=== PATIENT | male | born 1990 | race American Indian/Alaskan Native ===

== ENCOUNTER 2016-11-15 13:16 | Emergency (ER) | payer SELFPAY ==
[2016-11-15] MEDS ORDERED: XYLOCAINE 1% MPF 5 mL INFILTRATI ONE ×2 (13:21→17:42)
[2016-11-15] MEDS ORDERED: ZITHROMAX PO ONE ×2 (13:21→17:42)
[2016-11-15] MEDS ORDERED: ROCEPHIN IM ONE (13:21)
--- NOTE | 2016-11-15 13:21 | Emergency Department Report ---
Chief Complaint: Urogenital-Male Stated Complaint: ABD PAIN NAUSEA Time Seen by Provider: 11/15/16 13:17 - HPI History of Present Illness: PT c/o penile discharge x 1 week. - ROS Review of Systems: - fever - chill - Exam Physical Exam: PT looks well, non toxic. no cva tenderness gcs 15 MSE screening note: Focused history and physical exam performed. Due to findings the following was ordered: labs, meds ED Disposition for MSE Condition: Stable
--- NOTE | 2016-11-15 16:29 | Emergency Department Report ---
ED Male HPI - General Chief complaint: Urogenital-Male Stated complaint: ABD PAIN NAUSEA Time Seen by Provider: 11/15/16 13:17 Source: patient Mode of arrival: Ambulatory Limitations: No Limitations - History of Present Illness Initial comments: Patient here reports that he has discharge from his penis that's been going on for over a week. He said that he was having sexual activity and was wearing a condom and the condom broke. He said he doesn't know F his partner have similar symptoms because he knows she is just on the light. Denies any fever or chills. Denies any urinary burning frequency or urgency. Denies any nausea or vomiting. Reports abdominal cramping on and off 1 week. Denies any blood in his urine. Denies any back pain. Patient said his abdominal pain is from him doing sit ups. Pain is 3 out of 10 and cramping and he did not take any medication for pain. MD Complaint: penile discharge Onset/Timin -: week(s) Location: abdomen Radiation: none Severity scale (0 -10): 3 Quality: other (cramping) Consistency: intermittent Improves with: none Worsens with: none new sexual partner discharge. denies: swelling, mass, rash, urinary retention, blood in urine, dysuria, fever, nausea/vomiting, incontinence - Related Data Sexually active: Yes Previous Rx's Medication Instructions Recorded Last Taken Type Ciprofloxacin HCl [Ciprofloxacin 500 mg PO Q12H #20 tab 11/15/16 Unknown Rx TAB] Allergies Allergy/AdvReac Type Severity Reaction Status Date / Time No Known Allergies Allergy Unverified 11/15/16 16:20 ED Review of Systems ROS: Stated complaint: ABD PAIN NAUSEA Other details as noted in HPI Comment: All other systems reviewed and negative Constitutional: no symptoms reported ENT: denies: throat pain Respiratory: no symptoms reported Cardiovascular: denies: chest pain, palpitations, edema, syncope Gastrointestinal: denies: abdominal pain, nausea, vomiting, diarrhea, constipation, hematemesis, melena, hematochezia Genitourinary: discharge. denies: urgency, dysuria, frequency, hematuria, testicular pain, testicular mass Musculoskeletal: denies: back pain, arthralgia, myalgia Skin: denies: rash Neurological: denies: headache ED Past Medical Hx - Past Medical History Previous Medical History?: No - Surgical History Past Surgical History?: No - Family History Family history: no significant - Social History Smoking Status: Former Smoker Substance Use Type: None Other Social History: Single - Medications Home Medications: Home Medications Medication Instructions Recorded Confirmed Last Taken Type Ciprofloxacin HCl [Ciprofloxacin 500 mg PO Q12H #20 tab 11/15/16 Unknown Rx TAB] ED Physical Exam - General Limitations: No Limitations General appearance: alert, in no apparent distress - Head Head exam: Present: atraumatic, normocephalic, normal inspection - Eye Eye exam: Present: normal appearance, PERRL, EOMI Pupils: Present: normal accommodation - ENT ENT exam: Present: normal exam, normal orophraynx, mucous membranes moist - Neck Neck exam: Present: normal inspection, full ROM. Absent: tenderness, lymphadenopathy - Respiratory Respiratory exam: Present: normal lung sounds bilaterally. Absent: respiratory distress, chest wall tenderness - Cardiovascular Cardiovascular Exam: Present: regular rate, normal rhythm, normal heart sounds. Absent: systolic murmur, diastolic murmur - GI/Abdominal GI/Abdominal exam: Present: soft, normal bowel sounds. Absent: distended, tenderness, guarding, rebound, rigid, organomegaly, mass, bruit, pulsatile mass , hernia - exam: Present: urethral discharge. Absent: testicular tenderness, scrotal swelling, vertical testicular lie, circumcision External exam: Present: normal external exam. Absent: erythema, swelling, lesions, lacerations, ecchymosis - Extremities Exam Extremities exam: Present: normal inspection, full ROM, normal capillary refill. Absent: tenderness, pedal edema, joint swelling, calf tenderness - Back Exam Back exam: Present: normal inspection, full ROM. Absent: tenderness, CVA tenderness (R), CVA tenderness (L), muscle spasm, paraspinal tenderness, vertebral tenderness, rash noted - Neurological Exam Neurological exam: Present: alert, oriented X3, normal gait, reflexes normal. Absent: motor sensory deficit - Psychiatric Psychiatric exam: Present: normal affect, normal mood - Skin Skin exam: Present: warm, dry, intact, normal color. Absent: rash ED Course Vital Signs 11/15/16 11/15/16 11/15/16 13:18 16:27 16:54 Temperature 98.9 F Pulse Rate 99 H 86 Respiratory 16 16 Rate Blood Pressure 142/59 Blood Pressure 113/62 [Right] O2 Sat by Pulse 97 100 Oximetry - Reevaluation(s) Reevaluation #1: 11/15/16 17:45 Patient given rocephin 1 gram to cover Gonorrhea and UTI, Flagyl 2 gram for Trichomonas and azithromycin 1 g by mouth for chlamydia. He had no adverse reaction in emergency room. ED Medical Decision Making - Lab Data Lab Results 11/15/16 Range/Units 16:59 Urine Color Yellow (Yellow) Urine Turbidity Cloudy (Clear) Urine pH 6.0 (5.0-7.0) Ur Specific [place] 1.025 (1.003-1.030) Urine Protein 30 mg/dl (Negative) mg/dL Urine Glucose (UA) Neg (Negative) mg/dL Urine Ketones Tr (Negative) mg/dL Urine Blood Neg (Negative) Urine Nitrite Neg (Negative) Urine Bilirubin Neg (Negative) Urine Urobilinogen 4.0 (<2.0) mg/dL Ur Leukocyte Esterase Mod (Negative) Urine WBC (Auto) > 182.0 H (0.0-6.0) /HPF Urine RBC (Auto) 23.0 (0.0-6.0) /HPF U Epithel Cells (Auto) < 1.0 (0-13.0) /HPF Urine Mucus 1+ /HPF Urine culture pending Gonorrhea and chlamydia pending - Medical Decision Making ED course: Sent here complaining and of penile drainage and reports that he was having sexual encounter with a new partner and his condom broke. He describes the discharge as white and creamy. He said this started a week ago. She denies any penile rash, urinary burning frequency or urgency. He denies any blood in his urine. Denies any back pain. Patient complaining of lower abdominal pain but related it to him doing sit ups. He does hold his urine quite frequently. Urinalysis reveal patient with bladder infection, trace ketone and patient is able to drink oral liquids without any difficulties in emergency room. He also has protein at 30 in his urine suspect from infection. Patient treated for concerned for STD with Rocephin to cover gonorrhea. He was given 1 g IM which will cover gonorrhea and treat UTI, he was given azithromycin 1 g by mouth to treat Chlamydia and Flagyl 2 g by mouth to treat Trichomonas. I discussed with patient that is urine results show that he had a bladder infection, mild dehydration and some protein in his urine and he will need to follow-up at [facility] for repeat urinalysis in 10 days. I Also discussed with him that I sent a urine culture off and will call him if need to change his antibiotic and also that urine gonorrhea and chlamydia was sent and he will be called if necessary. Patient vital signs are stable and is afebrile. I instructed patient that he needs to practice safe sex and increase his fluid intake. I also instructed him that he needs to tell his sexual partner that he was treated for STD in emergency room and that partner will need to go get checked for STD. This with him that they can go to [facility]. Patient was nondistended discharge diagnosis and treatment plan and discharged home with prescription for ciprofloxacin. Patient with acute cystitis without hematuria, no concern for STD without diagnosis, penile discharge and abdominal pain. Critical care attestation.: If time is entered above; I have spent that time in minutes in the direct care of this critically ill patient, excluding procedure time. ED Disposition Clinical Impression: Concern about STD in male without diagnosis, Penile discharge, Acute cystitis without hematuria, Ketonuria, Mild dehydration Abdominal pain Qualifiers: Abdominal location: lower abdomen, unspecified Qualified Code(s): R10.30 - Lower abdominal pain, unspecified Protein in urine Qualifiers: Proteinuria type: unspecified Qualified Code(s): R80.9 - Proteinuria, unspecified Disposition: DC-01 TO HOME OR SELFCARE Is pt being admited?: No Does the pt Need Aspirin: No Condition: Stable Instructions: Dehydration (ED), Urinary Tract Infection in Men (ED), Sexually Transmitted Diseases (ED), Safe Sex (ED), Abdominal Pain (ED) Additional Instructions: Please follow up with [facility] since he do not have a primary care for follow-up urinalysis due to protein in urine and follow-up STD. Please follow-up and 7-10 days. informed your partner that you were treated for STD due to penile drainage and that here she will need to get checked for STD. drink plenty of fluids and please do not hold urine when you get the urge to urinate Take antibiotic as prescribed Please refrain from having sex over the next 2 weeks Please do not drink alcohol as you got medication to treat STD in emergency room and alcohol mixed with this medication can cause severe nausea or vomiting. I would recommend that you refrain from using all cough for the next 7 days Please practice safe sex Prescriptions: Ciprofloxacin HCl [Ciprofloxacin TAB] 500 mg PO Q12H #20 tab Referrals: [facility] [Outside] - 7-10 days Forms: Work/School Release Form(ED)
[2016-11-15 17:14] LABS: Bilirubin,Urine NEG (Negative); Blood,Urine NEG (Negative); Ketones,Urine TR mg/dL (Negative); Leukocyte Esterase,Urine MOD (Negative); Mucus,Urine 1+ /HPF; Nitrite,Urine NEG (Negative)
[2016-11-15 17:16] LABS: WBC,Urine > 182.0 /HPF (0.0-6.0)
[2016-11-15] MEDS ORDERED: FLAGYL PO ONE (17:42)
[2016-11-15] MEDS ORDERED: ROCEPHIN IM STA (17:42)
[2016-11-15 18:41] VITALS: BP 137/85
== END 2016-11-15 18:49 | disposition home or self-care (01) ==
LOC: ED 13:16
DX: N30.00 Acute cystitis without hematuria (principal); R82.4 Acetonuria; E86.0 Dehydration; Z87.891 Personal history of nicotine dependence
CPT/HCPCS: 81001; 87086; 96372; 99283; J0696